=== PATIENT | male | born 1975 | race Caucasian/White ===

== ENCOUNTER 2022-11-10 08:23 | Outpatient (CLI) | payer BC, SELFPAY | END 2022-11-10 08:24 | disposition home or self-care (01) | LOC: NFLDREF 11-12 02:22 | PROVIDERS: PCP Emergency Medicine; Visit Provider Emergency Medicine | DX: Z00.00 Encounter for general adult medical examination without abnormal findings (principal); R03.0 Elevated blood-pressure reading, without diagnosis of hypertension; Z78.9 Other specified health status; Z80.42 Family history of malignant neoplasm of prostate; Z13.6 Encounter for screening for cardiovascular disorders | CPT/HCPCS: 80048; 80061; 80076; 84153 ==

== ENCOUNTER 2022-11-17 09:15 | Outpatient (CLI) | payer BC, SELFPAY ==
--- NOTE | 2022-11-17 08:21 | W.ANESCHARGE ---
Anesthesia Charges Start Date/Time Anesthesia Start Date: 11/17/22 Anesthesia Start Time: 09:50 Stop Date/Time Anesthesia Stop Date: 11/17/22 Anesthesia Stop Time: 10:15
--- NOTE | 2022-11-17 10:17 | W.ANESCHARGE ---
Anesthesia Charges Start Date/Time Anesthesia Start Date: 11/17/22 Anesthesia Start Time: 09:50 Stop Date/Time Anesthesia Stop Date: 11/17/22 Anesthesia Stop Time: 10:15
== END 2022-11-17 09:16 | disposition home or self-care (01) ==
LOC: OP CLINIC 09:16
PROVIDERS: PCP Emergency Medicine; Visit Provider Internal Medicine
DX: Z12.11 Encounter for screening for malignant neoplasm of colon (principal); K63.5 Polyp of colon
CPT/HCPCS: 45380; 811; 88305; J2704